=== PATIENT | male | born 1960 | race Hispanic/Latino ===

== ENCOUNTER → 2021-02-10 | Outpatient (CLI) | payer OTHER, BC | END | disposition home or self-care (01) | LOC: RAH 12:23 | PROVIDERS: ATTEND Family Medicine | DX: R03.0 Elevated blood-pressure reading, without diagnosis of hypertension (principal); M25.551 Pain in right hip | CPT/HCPCS: 71046; 73502 ==

== ENCOUNTER → 2021-02-14 | Outpatient (CLI) | payer OTHER, BC | END | disposition home or self-care (01) | LOC: RAH 07:49 | PROVIDERS: ATTEND Family Medicine | DX: R35.0 Frequency of micturition (principal); K76.0 Fatty (change of) liver, not elsewhere classified; R16.0 Hepatomegaly, not elsewhere classified; Z87.891 Personal history of nicotine dependence | CPT/HCPCS: 76700; 76770; 93975 ==